=== PATIENT | female | born 1990 | race Caucasian/White ===

== ENCOUNTER 2016-12-28 15:46 | Emergency (ER) | payer BC ==
[2016-12-28] MEDS ORDERED: HYDROmorphone HCL 1 MG/ML SYR ONE (16:16)
[2016-12-28] MEDS ORDERED: ONDANSETRON ODT 4 MG TAB.RAPDIS ONE (16:16)
[2016-12-28] MEDS ORDERED: KETOROLAC TROMETHAMINE 30 MG/ML VIAL ONE (16:16)
--- NOTE | 2016-12-28 16:44 | RADIOLOGY REPORT ---
HISTORY: Knee injury with laceration of the patellar region. COMPARISON: None. FINDINGS: 3 views of the knee obtained. There is no fracture. There is no lytic or sclerotic lesion. There i s normal bony alignment and mineralization. IMPRESSION: Unremarkable knee x-ray. Final Electronic Signature: This report was electronically signed by Vitor Nj MD, FACR on 2016 4:41 PM. joleen /
--- NOTE | 2016-12-28 17:19 | ER NURSING DOCUMENTATION ---
Nurse's Notes [facility] Name:Eden Oseguera Age:26 yrs Sex:Female :1990 Arrival Date:12/28/2016 Time:15:44 BedTrauma-B Private MD: Diagnosis:Knee Contusion Presentation: 12/28 15:47 Acuity: DEMETRA 3 tg 16:13 Presenting complaint: Patient states: Tripped while hiking, landed on right knee. tg Transition of care: patient was not received from another setting of care. 16:13 Method Of Arrival: Private Vehicle tg Triage Assessment: 16:11 General: Appears uncomfortable, Behavior is cooperative. Pain: Complains of pain in tg right knee. Neuro: Level of Consciousness is awake, alert. Cardiovascular: Capillary refill < 3 seconds in right toes. Respiratory: Respiratory effort is even, unlabored. Derm: Skin is pink, warm & dry. Musculoskeletal: Circulation, motion, and sensation intact Range of motion limited in right knee. Injury Description: Laceration sustained to right knee is 0.5 to 2.5 cm long, not bleeding. Historical: - Allergies: No known drug Allergies; - Home Meds: 1. None - PMHx: None; - PSHx: csection; - Tetanus: < 10 years. - Ebola Screening: : Patient negative for fever greater than or equal to 101.5 degrees Fahrenheit, and additional compatible Ebola Virus Disease symptoms. Patient denies exposure to infectious person. Patient denies travel to an Ebola-affected area in the 21 days before illness onset. No symptoms or risks identified at this time. . - Immunization history: Flu Vaccine < 1 year. - Social history: Smoking status: Patient states was never smoker of tobacco. Screenin:13 Infectious Disease Risk Unable to Obtain. Abuse screen: Denies threats or abuse. Denies tg injuries from another. Nutritional screening: No deficits noted. Vital Signs: 15:47 BP 135 / 72; Pulse 76; Resp 24; Temp 98.7(O); Pulse Ox 97% on R/A; Weight 87.54 kg (R); arc Height 5 ft. 9 in. (175.26 cm) (R); Pain 8/10; 16:43 Pain 4/10; tg 16:50 BP 115 / 67; Pulse 81; Resp 14; Pulse Ox 92% on R/A; Pain 4/10; tg 15:47 Body Mass Index 28.50 (87.54 kg, 175.26 cm) arc ED Course: 15:44 Patient arrived in ED. em3 15:47 Iggy Draper RN is Primary Nurse. tg 15:47 Triage completed. tg 15:47 Ice pack to injury. Elevated leg. arc 15:49 Beau Hyman MD is Attending Physician. tl1 16:14 Valuables Remains with patient. tg 16:20 KNEE; [address] [place] [address] In Process Unspecified. EDMS 16:20 Port Xray Completed. hz 17:14 Crutch training done. Bryce wrap to right knee. Wound care to abrasion, located on right em3 knee was cleaned with Hibiclens, dressed with 4X4s, Patient tolerated well. Administered Medications: 16:05 Drug: Zofran 4 mg; Route: PO; tg 16:43 Follow up: Response: No adverse reaction tg 16:11 Drug: Dilaudid 1 mg; Route: IM; Site: left deltoid; tg 16:43 Follow up: Pain 4/10 Adult; Response: Pain is decreased tg 16:11 Drug: Toradol 30 mg; Route: IM; Site: right deltoid; tg 16:43 Follow up: Response: No adverse reaction; Pain is decreased tg Outcome: 16:43 Discharge ordered by MD. tl1 17:17 Discharged to home ambulatory, with crutches, with significant other. tg 17:17 Condition: stable 17:17 Discharge Assessment: Patient awake and alert. 17:17 Instructed on discharge instructions, follow up and referral plans. medication usage, Prescriptions given X 2. 17:18 Patient left the ED. tg 12/29 13:25 Discharge F/U Call: Spoke with: patient. Are you having any pain? yes. How are you lc managing your pain? Patient is taking medication: RX Heat/Ice Elevation Have you filled your prescriptions? yes. Did your discharge instructions answer all of your questions? yes Overall Care on a scale of 1-10 with 10 being the best care, you rate our care as: Other comments: [facility] INTACT, ROM ENCOURAGED, BRYCE REMOVAL, AND FU IF PAIN PERSISTS WHEN GETS HOME. Signatures: Dispatcher [employer] EDMS Iggy Draper RN RN Negin Dumas RN RN Pawan Jenkins em3 Beau Hyman MD MD tl1 Loreto Denise, Reg [facility] Tianna Stockton
--- NOTE | 2016-12-30 17:18 | ER PHYSICIAN DOCUMENTATION ---
Physician Documentation [facility] Name:Eden Oseguera Age:26 yrs Sex:Female :1990 Arrival Date:12/28/2016 Time:15:44 BedTrauma-B Private MD: Beau Brown Disposition: 12/28 18:00 Chart complete. tl1 Disposition: 12/28/16 16:43 Discharged to Home/Self Care. Impression: Knee Contusion. - Condition is Good. - Discharge Instructions: CONTUSION, Lower Extremity. - Prescriptions for Ruso 5- 325 mg Oral Tablet - take 1 tablet by ORAL route every 6 hours As needed; 6 tablet. Zofran 4 mg Oral Tablet - take 1-2 tablet by ORAL route every 4-6 hours As needed; 10 tablet. - Medical Reconciliation form form. - Follow up: Private Physician; When: 4- 6 days; Reason: Recheck today's complaints, Continuance of care. - Problem is new. - Symptoms have improved. HPI: 15:50 This 26 yrs old Female presents to ER via Private Vehicle with complaints of tl1 Knee Injury - Right. 15:50 The patient presents with a contusion. She stumbled while walking and landed hard on tl1 her right patella. She has not been able to bear weight. She has severe pain with palpation or bearing weight. No other injury except for the fact that she rolled her left ankle a bit, as she often does, precipitating the fall, but she has not pain or swelling there.. Historical: - Allergies: No known drug Allergies; - Home Meds: 1. None - PMHx: None; - PSHx: csection; - Tetanus: < 10 years. - Ebola Screening: : Patient negative for fever greater than or equal to 101.5 degrees Fahrenheit, and additional compatible Ebola Virus Disease symptoms. Patient denies exposure to infectious person. Patient denies travel to an Ebola-affected area in the 21 days before illness onset. No symptoms or risks identified at this time. . - Immunization history: Flu Vaccine < 1 year. - Social history: Smoking status: Patient states was never smoker of tobacco. ROS: 15:50 MS/extremity: Positive for abrasion, contusion, of the right knee. tl1 15:50 All other systems are negative. Exam: 15:50 Constitutional: This is a well developed, well nourished patient who is awake, alert, tl1 and in no acute distress. 15:50 Head/face: Exam is negative for acute changes. 15:50 Neck: ROM/movement: is normal, is supple. 15:50 Cardiovascular: Rate: normal. 15:50 Respiratory: Respirations: normal. 15:50 Musculoskeletal/extremity: Extremities: grossly normal except: noted in the right knee: abrasion, contusion, pain, swelling, tenderness, There is no evidence of effusion, laxity, deformity, echymosis. 15:50 Musculoskeletal/extremity: Joints: the left ankle displays normal. 15:50 Skin: Exam negative for acute changes. Vital Signs: 15:47 BP 135 / 72; Pulse 76; Resp 24; Temp 98.7(O); Pulse Ox 97% on R/A; Weight 87.54 kg (R); arc Height 5 ft. 9 in. (175.26 cm) (R); Pain 8/10; 16:43 Pain 4/10; tg 16:50 BP 115 / 67; Pulse 81; Resp 14; Pulse Ox 92% on R/A; Pain 4/10; tg 15:47 Body Mass Index 28.50 (87.54 kg, 175.26 cm) arc MDM: 15:49 Patient medically screened. tl1 15:50 Differential diagnosis: dislocation, open fracture, closed fracture, contusion, tl1 abrasion, sprain, contusion. Data reviewed: vital signs, nurses notes, radiologic studies, plain films, and as a result, I will discharge patient. Test interpretation: by ED physician or midlevel provider: plain radiologic studies. Counseling: I had a detailed discussion with the patient and/or guardian regarding: the historical points, exam findings, and any diagnostic results supporting the discharge/admit diagnosis, radiology results, the need for outpatient follow up, for a recheck, with the patient's primary care provider, to return to the emergency department if symptoms worsen or persist or if there are any questions or concerns that arise at home. Medication response: The patient's symptoms have improved, Dilaudid. 12/28 16:20 Order name: KNEE; [address] [place] [id number] EDMS 12/28 16:45 Order name: KNEE; [address] [place] [id number]; Complete Time: 14:58 EDKY 12/28 16:44 Order name: ORTHO: 6" Bryce Wrap; Complete Time: 16:54 tl1 12/28 16:44 Order name: ORTHO: Crutches & Training; Complete Time: 16:54 tl1 12/28 16:44 Order name: Wound Care; Complete Time: 16:54 tg Dispensed Medications: 16:05 Drug: Zofran 4 mg; Route: PO; tg 16:43 Follow up: Response: No adverse reaction tg 16:11 Drug: Dilaudid 1 mg; Route: IM; Site: left deltoid; tg 16:43 Follow up: Pain 4/10 Adult; Response: Pain is decreased tg 16:11 Drug: Toradol 30 mg; Route: IM; Site: right deltoid; tg 16:43 Follow up: Response: No adverse reaction; Pain is decreased tg Signatures: Iggy Draper RN RN Beau Jane MD MD tl1
== END 2016-12-28 17:18 | disposition home or self-care (01) ==
LOC: ER 15:46
DX: S80.01XA Contusion of right knee, initial encounter (principal); S80.211A Abrasion, right knee, initial encounter; W01.0XXA Fall on same level from slipping, tripping and stumbling without subsequent striking against object, initial encounter; Y92.838 Other recreation area as the place of occurrence of the external cause; Y93.01 Activity, walking, marching and hiking
CPT/HCPCS: 96372; 99284; J1170; J1885